=== PATIENT | male | born 1955 | race Caucasian/White ===

== ENCOUNTER 2017-01-05 15:00 | Inpatient (IN) | payer OTHER ==
[2017-01-04 20:00] VITALS: BP 120/66
[~2017-01-05] VITALS: Ht 182.9 cm; Wt 61.1 kg
[~2017-01-05 15:00] MED LIST: AZAT50TA9 PO; CHOL100015 PO; LIPA1CAP45 PO; LISI-170 PO; URSO300C27 PO; budesonide PO
[2017-01-05] MEDS ORDERED: FAMOTIDINE 20 MG/2 ML ONE (15:41)
[2017-01-05] MEDS ORDERED: SODIUM CHLORIDE FLUSH 10ML SYR IVF ONE (16:00)
[2017-01-05] MEDS ORDERED: FAMOTIDINE 20 MG/2 ML IVPush ONE (16:00)
[2017-01-05] MEDS ORDERED: SODIUM CHLORIDE 0.9% 1,000ML IVBOLUS ONE (16:00)
[2017-01-05 16:06] LABS: BLOOD UREA NITROGEN 26 mg/dL (7-18)
[2017-01-05 16:09] LABS: ASPARTATE AMINO TRANSFERASE 9 U/L (15-37)
[2017-01-05 16:11] LABS: DIFF TOTAL CELLS COUNTED 100 CELL DIFF
[2017-01-05 16:13] LABS: VERIFY COUNTS? YES
[2017-01-05 16:14] LABS: HYPOCHROMIA 1+; OVALOCYTES 1+; POLYCHROMASIA 1+
[2017-01-05] MEDS ORDERED: VITA200C7 PO (16:55)
[2017-01-05] MEDS ORDERED: SODIUM CHLORIDE 0.9%, 500ML IVBOLUS ONE (17:00)
[2017-01-05] MEDS ORDERED: ERGOCALCIFEROL 50,000 UNIT CAPSULE PO SCH (18:30)
[2017-01-05] MEDS ORDERED: morphine SULFATE 10 MG/ML, 1ML IVPush PRN (19:00)
[2017-01-05] MEDS ORDERED: BISACODYL 10 MG SUPP PR PRN (19:00)
[2017-01-05] MEDS: [UNRECOGNIZED DRUG - REMARK] MC SCH (19:00)
[2017-01-05] MEDS ORDERED: ONDANSETRON 2MG/ML, 2ML IVPush PRN (19:00)
[2017-01-05] MEDS: LIPASE/PROTEASE/AMYLASE TAB PO SCH (21:00)
[2017-01-05] MEDS: URSODIOL 250 MG TABLET PO SCH (21:00)
[2017-01-05 21:26] VITALS: BP 130/73
[2017-01-05 21:40] VITALS: BP 131/74
[2017-01-05] MEDS: SODIUM CHLORIDE 0.9% 1,000 ML IV SCH (22:07)
[2017-01-05] MEDS: PANTOPRAZOLE 40 MG IV IVPush SCH (22:07)
[2017-01-05 23:56] VITALS: BP 110/67
[2017-01-05] MEDS: TAMSULOSIN 0.4 MG CAP.ER.24H PO SCH (23:58)
[2017-01-06] VITALS (26 sets, daily range): BP systolic 101–144; BP diastolic 60–91
[2017-01-06 02:31] LABS: ASPARTATE AMINO TRANSFERASE 14 U/L (15-37); BLOOD UREA NITROGEN 18 mg/dL (7-18)
[2017-01-06] MEDS: [UNRECOGNIZED DRUG - REMARK] MC SCH ×3 (03:00→19:00)
[2017-01-06] MEDS ORDERED: ACETAMINOPHEN 325 MG TABLET PO ONE (04:00)
[2017-01-06] MEDS: LIPASE/PROTEASE/AMYLASE TAB PO SCH ×3 (08:00→17:23)
[2017-01-06] MEDS: PANTOPRAZOLE 40 MG IV IVPush SCH ×2 (08:19→20:59)
[2017-01-06] MEDS: SODIUM CHLORIDE 0.9% 1,000 ML IV SCH ×2 (08:20→15:52)
[2017-01-06] MEDS: LISINOPRIL 20 MG TABLET PO SCH (08:23)
[2017-01-06] MEDS: URSODIOL 250 MG TABLET PO SCH (08:23)
[2017-01-06] MEDS: VITAMIN E 400 UNITS CAPSULE PO SCH (08:23)
[2017-01-06 10:47] LABS: PATH.CAST-FLAG NOT PRESENT; SPERM-FLAG NOT PRESENT; SRC-FLAG NOT PRESENT; XTAL-FLAG NOT PRESENT; YLC-FLAG NOT PRESENT
[2017-01-06] MEDS ORDERED: MIDAZOLAM 1 MG/ML, 5ML ONE (13:35)
[2017-01-06] MEDS ORDERED: FENTANYL PF 100 MCG/2ML ONE (13:35)
[2017-01-06] MEDS ORDERED: URSODIOL 250 MG TABLET PO SCH (20:30)
[2017-01-06] MEDS: TAMSULOSIN 0.4 MG CAP.ER.24H PO SCH (20:59)
[2017-01-06] MEDS ORDERED: ACETAMINOPHEN 325 MG TABLET PO PRN (21:30)
[2017-01-07 02:02] VITALS: BP 116/70
[2017-01-07] MEDS: [UNRECOGNIZED DRUG - REMARK] MC SCH ×2 (03:00→11:00)
[2017-01-07] MEDS: SODIUM CHLORIDE 0.9% 1,000 ML IV SCH (03:00)
[2017-01-07 05:33] LABS: BLOOD UREA NITROGEN 10 mg/dL (7-18)
[2017-01-07 07:23] VITALS: BP 122/74
[2017-01-07] MEDS: LIPASE/PROTEASE/AMYLASE TAB PO SCH ×2 (08:40→12:15)
[2017-01-07] MEDS: LISINOPRIL 20 MG TABLET PO SCH (08:40)
[2017-01-07] MEDS: VITAMIN E 400 UNITS CAPSULE PO SCH (08:40)
[2017-01-07] MEDS: PANTOPRAZOLE 40 MG IV IVPush SCH (08:40)
[2017-01-07] MEDS ORDERED: TAMS-11 PO (10:58)
[2017-01-07] MEDS ORDERED: SUCR1TAB26 PO (10:58)
[2017-01-07] MEDS ORDERED: OMEP-110 PO (10:58)
== END 2017-01-07 13:37 | disposition home or self-care (01) | DRG 378 ==
LOC: ED 15:59 → EDIP 16:57 → 4EST 18:36 → DCLOUNGE 01-07 13:18
PROVIDERS: ADMIT Hospitalist; ATTEND Family Medicine
PROC: 30233N1 Transfusion of Nonautologous Red Blood Cells into Peripheral Vein, Percutaneous Approach (ICD-10-PCS; principal; 2017-01-05)
PROC: 0W3P8ZZ Control Bleeding in Gastrointestinal Tract, Via Natural or Artificial Opening Endoscopic (ICD-10-PCS; 2017-01-06)
PROC: 0DB68ZX Excision of Stomach, Via Natural or Artificial Opening Endoscopic, Diagnostic (ICD-10-PCS; 2017-01-06)
DX: K28.4 Chronic or unspecified gastrojejunal ulcer with hemorrhage (principal); D62 Acute posthemorrhagic anemia; E87.2 Acidosis; E44.0 Moderate protein-calorie malnutrition; Z68.1 Body mass index [BMI] 19.9 or less, adult; G43.909 Migraine, unspecified, not intractable, without status migrainosus; I10 Essential (primary) hypertension; K20.9 Esophagitis, unspecified; Z80.0 Family history of malignant neoplasm of digestive organs; Z83.3 Family history of diabetes mellitus; Z90.411 Acquired partial absence of pancreas
CPT/HCPCS: 36415; 80048; 80053; 81001; 83605; 83690; 85014; 85018; 85025; 85610; 85730; 86078; 86677; 86850; 86900; 86902; 86922; 86923; 88305; 93005; 93306; 96361; 96374; 99152; 99153; J2250; J3010; C9113; J7030; J7040; P9016; S0028

== ENCOUNTER 2017-03-20 11:07 | Emergency (ER) | payer OTHER ==
[~2017-03-20] VITALS: Ht 182.9 cm; Wt 58.2 kg
[~2017-03-20 11:07] MED LIST changes: +OMEP-110 PO; +SUCR1TAB26 PO; +TAMS-11 PO; +VITA200C7 PO
[2017-03-20] MEDS ORDERED: BUDE3CAP6 PO (11:17)
[2017-03-20] MEDS ORDERED: VITA80004 PO (11:17)
[2017-03-20] MEDS ORDERED: AZAT50TA9 PO (11:17)
[2017-03-20] MEDS ORDERED: SODIUM CHLORIDE 0.9% 1,000 ML IV ONE (11:38)
[2017-03-20] MEDS ORDERED: SODIUM CHLORIDE FLUSH 10ML SYR IVF ONE (12:00)
[2017-03-20] MEDS ORDERED: SODIUM CHLORIDE 0.9% 1,000ML IVBOLUS ONE (12:00)
[2017-03-20] MEDS ORDERED: ONDANSETRON 2MG/ML, 2ML IVPush ONE (12:00)
[2017-03-20] MEDS ORDERED: HYDROmorphone 1 MG/ML, 1ML IVPush PRN (12:00)
[2017-03-20 12:10] LABS: HEMATOCRIT 34.5 % (39.2-51.8); HEMOGLOBIN 11.4 g/dL (13.7-18.0); WHITE BLOOD COUNT 5.9 x10^3/uL (3.4-10)
[2017-03-20] MEDS ORDERED: ONDANSETRON 2MG/ML, 2ML ONE (12:18)
[2017-03-20] MEDS ORDERED: HYDROmorphone 1 MG/ML, 1ML ONE (12:18)
[2017-03-20 12:23] LABS: ASPARTATE AMINO TRANSFERASE 190 U/L (15-37); BLOOD UREA NITROGEN 18 mg/dL (7-18)
[2017-03-20 13:50] VITALS: BP 148/80
== END 2017-03-20 14:50 | disposition home or self-care (01) ==
LOC: ED 11:37
DX: K75.4 Autoimmune hepatitis (principal); I10 Essential (primary) hypertension; Z90.49 Acquired absence of other specified parts of digestive tract
CPT/HCPCS: 36415; 74022; 76700; 80053; 81001; 82550; 83605; 83690; 85025; 85610; 85730; 87040; 87086; 96361; 96374; 96375; 99285; J1170; J2405; J7030